=== PATIENT | male | born 1940 | race Caucasian/White ===

== ENCOUNTER → 2017-06-10 | Outpatient (CLI) | payer MEDICARE, BC ==
[~2017-06-10] MED LIST: ATOR10; Adult Low Dose81 MG; CIPR500 PO; ENDOCET 2.5-321 EACH; Endocet 7.5-321 EACH PO; FISH1000; METR500 PO; MULVITMIND; Oxycodone-Apap1 EAC3; Percocet 5-3251 EACH PO; TAMS.4ER PO
== END | disposition home or self-care (01) ==
LOC: PLD 11:18 → LAB SHORT 11:18
DX: D48.5 Neoplasm of uncertain behavior of skin (principal)
CPT/HCPCS: 88305

== ENCOUNTER → 2018-06-10 | Outpatient (CLI) | payer MEDICARE, BC | END | disposition home or self-care (01) | LOC: LAB SHORT 14:40 → PLD 14:40 | DX: C44.41 Basal cell carcinoma of skin of scalp and neck (principal) | CPT/HCPCS: 88305 ==

== ENCOUNTER 2018-12-31 19:02 | Emergency (ER) | payer MEDICARE, BC ==
[~2018-12-31] VITALS: Ht 175.3 cm; Wt 70.3 kg
[2018-12-31 19:42] LABS: BASOPHILS ABSOLUTE AUTO 0.07 K/mm3 (0.00-0.23); BASOPHILS PERCENT AUTO 1 % (0-2); EOSINOPHILS ABSOLUTE AUTO 0.19 K/mm3 (0.00-0.68); EOSINOPHILS PERCENT AUTO 3 % (0-6); Hematocrit 41.6 % (37.0-53.0); Hemoglobin 13.7 g/dL (13.5-17.5); IMMATURE GRAN ABSOLUTE AUTO 0.03 K/mm3 (0.00-0.10); IMMATURE GRAN PERCENT AUTO 1 % (0-1); LYMPHOCYTES ABSOLUTE AUTO 1.53 K/mm3 (0.84-5.20); LYMPHOCYTES PERCENT AUTO 25 % (21-46); MONOCYTES ABSOLUTE AUTO 0.73 K/mm3 (0.16-1.47); MONOCYTES PERCENT AUTO 12 % (4-13); Mean Corpuscular HGB 31.3 pg (26.0-34.0); Mean Corpuscular HGB Conc 32.9 g/dL (31.5-36.5); Mean Corpuscular Volume 95 fL (80-100); Mean Platelet Volume 10.3 fL (9.1-12.4); NEUTROPHILS ABSOLUTE AUTO 3.56 K/mm3 (1.96-9.15); NEUTROPHILS PERCENT AUTO 58 % (41-73); Platelet Count 188 K/mm3 (150-400); RDW Coefficient Variation 13.7 % (11.7-14.2); RDW Standard Deviation 48.2 fL (35.1-46.3); Red Blood Cell Count 4.38 M/mm3 (4.30-5.90); White Blood Cell Count 6.11 K/mm3 (4.00-11.30)
[2018-12-31 19:47] LABS: Source, Urine Clean Catch
[2018-12-31 19:58] LABS: Appearance, Urine Clear (Clear); Bilirubin, Urine Neg (Neg); Blood, Urine Neg (Neg); Color, Urine Yellow (P-Yellow); Glucose Qualitative, Urine Neg (Neg); Ketones, Urine Neg (Neg); Leukocyte Esterase, Urine Neg (Neg); Nitrite, Urine Neg (Neg); Protein, Urine 1+ (Neg); Urobilinogen, Urine NORM (Normal); pH, Urine 6.5 (5.0-8.0)
[2018-12-31 20:02] LABS: Alanine Aminotransfer (ALT/SGP 26 U/L (12-78); Albumin, Blood 3.8 g/dL (3.4-5.0); Albumin/Globulin Ratio 1.2 (0.8-1.8); Alk Phos 57 U/L (50-136); Anion Gap 3 mmol/L (6-16); Aspartate Aminotrans (AST/SGOT 16 U/L (12-37); Bilirubin, Total 0.3 mg/dL (0.1-1.0); Blood Urea Nitrogen 18 mg/dL (8-24); Bun/Creatinine Ratio 19.7 (12.0-20.0); CO2, Blood 28 mmol/L (21-32); Calcium, Blood 8.9 mg/dL (8.5-10.1); Chloride, Blood 109 mmol/L (98-108); Creatinine, Blood 0.91 mg/dL (0.60-1.20); Globulin, Blood 3.2 g/dL (2.2-4.0); Glomerular Filtration Rate >60 (60-); Glucose, Blood 90 mg/dL (70-99); Potassium, Blood 4.1 mmol/L (3.5-5.5); Sodium, Blood 140 mmol/L (136-145)
[2018-12-31] MEDS ORDERED: LIDO700A20 TOP (21:13)
[2018-12-31] MEDS ORDERED: KETO10 PO (21:13)
== END 2018-12-31 22:00 | disposition home or self-care (01) ==
LOC: ER 19:02
PROVIDERS: Physician Assistant
DX: M54.41 Lumbago with sciatica, right side (principal); Z79.899 Other long term (current) drug therapy; Z79.891 Long term (current) use of opiate analgesic
CPT/HCPCS: 36415; 74176; 80053; 85025; 99284-25

== ENCOUNTER → 2019-01-26 | Outpatient (CLI) | payer MEDICARE, BC ==
[~2019-01-26] MED LIST changes: +KETO10 PO; +LIDO700A20 TOP
== END | disposition home or self-care (01) ==
LOC: PLD 07:41 → LAB SHORT 07:41
DX: D48.5 Neoplasm of uncertain behavior of skin (principal)
CPT/HCPCS: 88305

== ENCOUNTER → 2019-02-05 | Outpatient (CLI) | payer MEDICARE, BC | END | disposition home or self-care (01) | LOC: PLD 08:30 → LAB SHORT 08:30 | DX: D48.5 Neoplasm of uncertain behavior of skin (principal) | CPT/HCPCS: 88305 ==

== ENCOUNTER → 2020-11-28 | Outpatient (CLI) | payer MEDICARE, BC | LOC: LAB 15:24 → LAB SHORT 15:24 | DX: D48.5 Neoplasm of uncertain behavior of skin (principal) | CPT/HCPCS: 88305 ==

== ENCOUNTER 2020-12-14 16:07 | Inpatient (IN) | payer MEDICARE, BC ==
[~2020-12-14] VITALS: Ht 172.7 cm; Wt 69.2 kg
[~2020-12-14 16:07] MED LIST changes: -BRIMONIDINE TART5 M2 RIGHTEYE
[2020-12-14 16:50] LABS: Alanine Aminotransfer (ALT/SGP 18 U/L (12-78); Albumin, Blood 3.3 g/dL (3.4-5.0); Albumin/Globulin Ratio 1.1 (0.8-1.8); Alk Phos 51 U/L (50-136); Anion Gap 6 mmol/L (6-16); Aspartate Aminotrans (AST/SGOT 16 U/L (12-37); BASOPHILS ABSOLUTE AUTO 0.09 K/mm3 (0.00-0.23); BASOPHILS PERCENT AUTO 1 % (0-2); Bilirubin, Total 0.4 mg/dL (0.1-1.0); Blood Urea Nitrogen 22 mg/dL (8-24); Bun/Creatinine Ratio 19.5 (12.0-20.0); CO2, Blood 25 mmol/L (21-32); Calcium, Blood 8.9 mg/dL (8.5-10.1); Chloride, Blood 110 mmol/L (98-108); Creatinine, Blood 1.13 mg/dL (0.60-1.20); EOSINOPHILS ABSOLUTE AUTO 0.22 K/mm3 (0.00-0.68); EOSINOPHILS PERCENT AUTO 3 % (0-6); Globulin, Blood 3.1 g/dL (2.2-4.0); Glomerular Filtration Rate >60 (60-); Glucose, Blood 93 mg/dL (70-99); Hematocrit 38.8 % (37.0-53.0); Hemoglobin 13.2 g/dL (13.5-17.5); IMMATURE GRAN ABSOLUTE AUTO 0.04 K/mm3 (0.00-0.10); IMMATURE GRAN PERCENT AUTO 1 % (0-1); LYMPHOCYTES ABSOLUTE AUTO 1.21 K/mm3 (0.84-5.20); LYMPHOCYTES PERCENT AUTO 17 % (21-46); MONOCYTES PERCENT AUTO 10 % (4-13); Mean Corpuscular HGB 31.4 pg (26.0-34.0); Mean Corpuscular Volume 92 fL (80-100); Mean Platelet Volume 10.2 fL (9.1-12.4); NEUTROPHILS ABSOLUTE AUTO 4.93 K/mm3 (1.96-9.15); NEUTROPHILS PERCENT AUTO 69 % (41-73); Platelet Count 194 K/mm3 (150-400); Potassium, Blood 4.1 mmol/L (3.5-5.5); RDW Coefficient Variation 13.6 % (11.7-14.2); RDW Standard Deviation 46.1 fL (35.1-46.3); Red Blood Cell Count 4.21 M/mm3 (4.30-5.90); Sodium, Blood 141 mmol/L (136-145); Total Protein, Blood 6.4 g/dL (6.4-8.2); Troponin I 0.059 ng/mL (0.000-0.040); White Blood Cell Count 7.19 K/mm3 (4.00-11.30)
[2020-12-14] MEDS ORDERED: BRIMONIDINE TART5 M2 RIGHTEYE (17:53)
[2020-12-14 19:53] LABS: SARS-Cov-2 (COVID-19) PCR, MMC NEGATIVE (NEGATIVE)
[2020-12-14 22:22] LABS: International Normalized Ratio 1.06; Prothrombin Time Results 11.1 Sec (9.7-11.5)
--- NOTE | 2020-12-15 04:52 | NUR ---
PATIENT IS A NEW ADMIT FROM ER, RN TO RN REPORT RECEIVED FROM MONSE. PATIENT IS ALERT AND ORIENTED X4. PATIENT ADMITTED FOR COMPLAIN OF CHEST PAIN. PATIENT HAS A PAST MEDICAL HISTORY OF DIVERTICULITIS. PATIENT HAD A CXR THAT IS NEGATIVE AND ON TELE WITH A NSR IN THE 60s. VITAL SIGNS ARE STABLE, WITH NO FEVER. PATIENT IS HARD OF HEARING. PATIENT HAS A TROPONIN LEVEL OF 0.098 AND ALBUMEN LEVEL OF 3.3. PATIENT REPORTED CHEST PAIN SOON A PATIENT GOT HERE. PATIENT WAS MEDICATED WITH NITRO SC, PAIN RESOLVED WITH THE FIRST DOSE. PATIENT DID NOT COMPLAIN OF ANY FURTHER CHEST PAIN. PATIENT WAS STARTED ON HEPARIN DRIP RUNNING AT 13 U/KG/HR. WILL CONTINUE TO MONITOR.
--- NOTE | 2020-12-15 06:30 | NUR ---
ISAURA'S APTT WAS CRITICALLY HIGH, APTT 111. SPOKE TO PHARMACY AND GOT ORDERS TO ADJUST TO RUN AT 12 UNITS/KG/H.
--- NOTE | 2020-12-15 12:50 | NUR ---
Patient c/o pain that radiates to his back. nothing made it better or worse. The telemarketing fundraiser was contact and patient was sinus rhythm 86bpm. The patient was sat up. The provider was contacted about the pain and he ordered tylenol. The patient's pain resolved itself.
--- NOTE | 2020-12-15 18:14 | NUR ---
Patient c/o pain in chest, he denied having SOB, He states its in the middle of his chest and it radiats to his back. Tele contacted and he is Sinus Rhythm 84. The patient's 136/87. The provider was contacted and tylenol was ordered and omeprazole. They were given per emar. The patient stated that he has hx of GERD.
--- NOTE | 2020-12-15 18:19 | NUR ---
Shift Summary, The patient is A/OX4 to person, place, time and event. The patient is cooperative and pleasent with care. He can be forgetfull and forgets to use call lights. The patient is a standby assist to the bathroom. He is on room air, no SOB, He has chest pain off and on, provider contacted an and tylenol was ordered both times. been given per emar or it resolves on its own. The patient has had a echocardiogram (see notes). Patient started stress test but unable to finish due to exertion. The patient will be NPO at midnight due to stress test in the AM. The patient is currently recieving heprin drip per EMAR. Currently, the patient is visiting with his .
--- NOTE | 2020-12-15 19:29 | NUR ---
Shift Summary, The patient is A/OX4 to person, place, time and event. The patient is pleasent and cooperative with care. She is on Airvo 55/90% and sp02 >90% until activity. The patient desats with exertion and requires an NRB 15LPM. The patient denies having SOB this shift. She has been working on breathing exercises per respiratory therapy. She has been working on physical exercises per PT/OT. The patient is a 1 prsn assist to [facility] and she has been up to her chair most of the day. The patient was visited by her this afternoon. The patient's diet has been good and she finishes most meals. Currenly the patient is lying in bed watching tv.
--- NOTE | 2020-12-16 05:09 | NUR ---
PT IS AAOX3. VISITED LAST NIGHT. PLEASANT ON APPROACH. DENIES CHEST PAIN. SINUS ARRON ON TELE. HR 58. HEP DRIP INFUSING AT 17.3ML/HOUR. NO S/S OF BLEEDING NOTED. NPO FOR STRESS TEST IN AM. NO CHANGE IN STATUS NOTED. ASSISTED WITH NEEDS. CALL LIGHT WITHIN REACH.
--- NOTE | 2020-12-16 05:20 | NUR ---
COMMUNICATION: DR. HUANG NOTIFIED BY CHARGE NURSE VANDANA OF TROPONIN LEVEL OF 0.360. NO NEW ORDER GIVEN.
--- NOTE | 2020-12-16 11:40 | NUR ---
Per chart review, pt. not yet appropriate for discharge. With potential to discharge over the next 24-72 hours, I met with pt. yesterday to discuss discharge planning. Pt. has strong family support system. Denied needs at home. Was very indipendent prior to admit. Denied concerns for safety or barriers to discharge. His girlfriend Rubén lives next door and daughter in-law is an FINISH REPAIRER. Pt. denied need for DME. We attempted to schedule a hospital F/U but he was unsure of dates/times available. Cancelled initially scheduled visit. DONTA team will contact pt. post discharge to schedule hospital F/U and also assist with plant specialist appointment if indicated. No further needs identified at this time.
--- NOTE | 2020-12-16 17:37 | NUR ---
SHIFT SUMMARY NO CHEST PAIN OR NAUSEA THIS SHIFT. STRESS TEST AND ECHO THIS AM. ANGIO SCHEDULED FOR TOMORROW BETWEEN [phone]. PT IS TO BE NPO AFTER MIDNIGHT AND HAVE HIS HEPARIN DRIP DC AFTER MIDNIGHT. DIL CALLED AND INFORMED OF PLAN FOR TOMORROW. CONSENT PAPERWORK SIGNED AND IN CHART. EYE DROPS FOR CATARACTS TO BE ADMINISTERED PER INSTRUCTIONS ON THE BOARD. WILL CONTINUE TO MONITOR.
--- NOTE | 2020-12-17 04:33 | NUR ---
PT REPORTS WAKING UP WITH SOME CENTRAL CHEST PAIN RATED 2/10 THAT LASTED FOR ABOUT TWO MINUTES. PT ADMITS THAT HE WAS A BIT STARTLED BY THE INDEPENDENT LIVING SPECIALIST THIS AM AND THE PAIN RESOLVED. PT NOT GIVEN NITRO AT THIS TIME.
--- NOTE | 2020-12-17 04:51 | NUR ---
PT BEGAN EXPERIENCING 8/10 CHEST PAIN WHEN SITTING UP TO WALK TO THE RESTROOM. PT GIVEN ONE DOSE OF NITRO AND REPORTS SOB. GIVEN ANOTHER DOSE. PT IS SINUS AT 86 PER BEHAVIOR THERAPIST. PAIN RESOLVING AFTER NITRO.
--- NOTE | 2020-12-17 07:39 | NUR ---
SUPERVISOR BEET END SUMMARY ADMITTED FOR CHEST PAIN. PT IS FULL CODE. PLAN FOR ANGIO TODAY TO FIND SOURCE OF THE CHEST PAIN. PT WOKE UP AT 0400 WITH ACUTE CHANGE AND MIDSTERNAL CHEST PAIN. PT MEDICATED WITH NITRO AND FENTANYL - SOME IMPROVEMENT BUT PAIN RETURNED WORSE. MEDICATED WITH DILAUDID AND SAME RESULT. RAPID RESPONSE CALLED WHEN THIS RN WAS UNABLE TO MANAGE PAIN FURTHER. PT MEDICATED FOR INCREASED ANXIETY PER EMAR. PT GIVEN GI COCKTAIL FOR "ACID" PAIN IN HIS CHEST. SEE RAPID RESPONSE NOTES.
[2020-12-17 08:04] LABS: Potassium, Blood 4.2 mmol/L (3.5-5.5); Troponin I 0.698 ng/mL (0.000-0.040)
--- NOTE | 2020-12-17 14:12 | NUR ---
PT HEADED TO ELECTRICAL PROSPECTING OPERATOR IN WHEELCHAIR @ 13:50, BELONGINGS GATHERED TO BE SENT TO NEW ROOM. HAD NOT HAD CHEST PAIN FOR ABOUT 2 HRS.
--- NOTE | 2020-12-17 15:50 | NUR ---
DR. GRANADO AT BEDSIDE. DISCUSSED POC. HE DISCUSSED PROCEDURE AND PLAN WITH PATIENT, HIS SIGNIFICANT OTHER, AND FAMILY MEMBERS OVER THE PHONE. PLAN IS FOR TRANSFER TO [place]. DR. GRANADO STATES OK TO LEAVE NITRO PATCH ON AND REMOVE AT 2200. ORDERS RECEIVED TO DC FISH OIL. STATES TO START DEFLATING TR BAND 1 HOUR POST PROCEDURE. PATIENT OK TO EAT TONIGHT. HAS AN ACCEPTING PHYSICIAN IN [place], WAITING FOR BED. IF PATIENT IS ABLE TO TRANSFER PRIOR TO FLUIDS FINISHING, TRANSFER WITH FLUIDS.
--- NOTE | 2020-12-17 19:00 | NUR ---
ENCOURAGED PATIENT TO VOID PRIOR TO TRANSFER. HE STATES HIS LAST VOID WAS PRIOR TO HIS PROCEDURE. STATES HE DOES NOT WANT TO VOID AT THIS TIME AND THAT HE WILL WAIT UNTIL HE GETS TO [facility].
--- NOTE | 2020-12-17 19:25 | NUR ---
TRANSFER: PATIENT LEFT VIA [facility] TO GO TO [facility] AT 1923. IV FLUIDS INFUSING AT 75 MLS/HR TO FINISH 8 HOUR INFUSION, EMS AWARE. LAST VITALS: TEMP 98.3, HR 74, BP 107/68, RR 16, SPO2 96% ON ROOM AIR. REPORT CALLED TO EMILY MOSES AT [facility] AT 1903. TR BAND COMPLETELY DEFLATED PRIOR TO TRANSFER, WHEN PATIENT GETS TO [facility] BAND WILL NEED TO BE TAKEN OFF AND TEGADERM APPLIED, EMILY MOSES AWARE. PATIENT'S GIRLFRIEND AWARE OF TRANSFER AND AMBULATED OUT OF HOSPITAL WITH EMS. NO FURTHER QUESTIONS AT TIME OF TRANSFER.
== END 2020-12-17 19:22 | disposition short-term general hospital (02) | DRG 282 ==
LOC: ER 16:07 → MEDS 16:08 → PCU 12-17 10:10 → MEDS 12-17 10:10 → PCU 12-17 10:10 → MEDS 12-17 15:11 → PCU 12-17 15:11 → ER 12-17 16:08 → PCU 12-17 19:22
PROVIDERS: Emergency Medicine; Internal Medicine; Pharmacist; Student in an Organized Health Care Education/Training Program; ADMIT Internal Medicine
PROC: 4A023N7 Measurement of Cardiac Sampling and Pressure, Left Heart, Percutaneous Approach (ICD-10-PCS; principal; 2020-12-17)
PROC: B2111ZZ Fluoroscopy of Multiple Coronary Arteries using Low Osmolar Contrast (ICD-10-PCS; 2020-12-17)
DX: I21.4 Non-ST elevation (NSTEMI) myocardial infarction (principal); I25.110 Atherosclerotic heart disease of native coronary artery with unstable angina pectoris; I10 Essential (primary) hypertension; Z20.822 Contact with and (suspected) exposure to COVID-19; Z96.642 Presence of left artificial hip joint; E78.5 Hyperlipidemia, unspecified; Z79.899 Other long term (current) drug therapy; Z98.890 Other specified postprocedural states; Z90.49 Acquired absence of other specified parts of digestive tract
CPT/HCPCS: 36415; 71045; 71275; 74175; 78452; 80051; 80053; 84484; 85025; 85379; 85610; 85730; 90686; 93005; 93010; 93017; 93306; 93458; 96375; 96376; 99152; 99153; 99285-25; A9270; A9500; C1769; C1894; C9113; G0008; G0378; J0360; J0706; J1170; J1644; J1885; J2060; J2250; J2270; J2785; J3010; J7030; J7040; J7050; Q9967; U0004

== ENCOUNTER → 2020-12-14 | Outpatient (CLI) | payer MEDICARE, BC ==
[~2020-12-14] MED LIST changes: +BRIMONIDINE TART5 M2 RIGHTEYE; +FISH OIL 1,2001 EAC7 PO; -FISH1000; +Hair, Skin & N1 EACH PO; -MULVITMIND
[2020-12-14 16:08] LABS: BASOPHILS PERCENT AUTO 1 % (0-2); EOSINOPHILS ABSOLUTE AUTO 0.26 K/mm3 (0.00-0.68); EOSINOPHILS PERCENT AUTO 4 % (0-6); Hemoglobin 13.6 g/dL (13.5-17.5); IMMATURE GRAN ABSOLUTE AUTO 0.03 K/mm3 (0.00-0.10); IMMATURE GRAN PERCENT AUTO 0 % (0-1); LYMPHOCYTES ABSOLUTE AUTO 1.27 K/mm3 (0.84-5.20); LYMPHOCYTES PERCENT AUTO 17 % (21-46); MONOCYTES ABSOLUTE AUTO 0.77 K/mm3 (0.16-1.47); MONOCYTES PERCENT AUTO 10 % (4-13); Mean Corpuscular Volume 91 fL (80-100); NEUTROPHILS ABSOLUTE AUTO 5.02 K/mm3 (1.96-9.15); NEUTROPHILS PERCENT AUTO 68 % (41-73); Platelet Count 201 K/mm3 (150-400); RDW Coefficient Variation 13.6 % (11.7-14.2); RDW Standard Deviation 46.1 fL (35.1-46.3); Red Blood Cell Count 4.39 M/mm3 (4.30-5.90); White Blood Cell Count 7.45 K/mm3 (4.00-11.30)
[2020-12-14 16:33] LABS: Albumin, Blood 3.6 g/dL (3.4-5.0); Albumin/Globulin Ratio 1.2 (0.8-1.8); Bilirubin, Total 0.3 mg/dL (0.1-1.0); Bun/Creatinine Ratio 17.6 (12.0-20.0); Calcium, Blood 8.9 mg/dL (8.5-10.1); Creatinine, Blood 1.25 mg/dL (0.60-1.20); Globulin, Blood 2.9 g/dL (2.2-4.0); Potassium, Blood 4.1 mmol/L (3.5-5.5); Total Protein, Blood 6.5 g/dL (6.4-8.2)
[2020-12-14 16:34] LABS: Troponin I 0.049 ng/mL (0.000-0.040)
== END | disposition home or self-care (01) ==
LOC: LAB 16:04 → LAB SHORT 16:04
PROVIDERS: Family Medicine
DX: R07.9 Chest pain, unspecified (principal)
CPT/HCPCS: 80053; 84484; 85025; 85379

== ENCOUNTER → 2022-01-14 | Outpatient (CLI) | payer MEDICARE, BC ==
[~2022-01-14] MED LIST changes: +BRIMONIDINE TART5 M2 RIGHTEYE
[2022-01-14 16:35] LABS: Hematocrit 39.7 % (37.0-53.0); Hemoglobin 13.1 g/dL (13.5-17.5); Mean Corpuscular Volume 94 fL (80-100); Mean Platelet Volume 9.8 fL (9.1-12.4); Platelet Count 258 K/mm3 (150-400); RDW Coefficient Variation 13.8 % (11.7-14.2); RDW Standard Deviation 46.5 fL (35.1-46.3); Red Blood Cell Count 4.22 M/mm3 (4.30-5.90); White Blood Cell Count 9.41 K/mm3 (4.00-11.30)
[2022-01-14 16:42] LABS: Albumin, Blood 3.2 g/dL (3.4-5.0); Albumin/Globulin Ratio 1.1 (0.8-1.8); Bilirubin, Total 0.3 mg/dL (0.1-1.0); Bun/Creatinine Ratio 16.1 (12.0-20.0); Calcium, Blood 8.8 mg/dL (8.5-10.1); Creatinine, Blood 2.18 mg/dL (0.60-1.20); Potassium, Blood 4.3 mmol/L (3.5-5.5); Total Protein, Blood 6.2 g/dL (6.4-8.2)
[2022-01-14 17:02] LABS: BAND PERCENT MAN 2 % (0-8); BASOPHILS PERCENT MAN 0 % (0-2); EOSINOPHILS ABSOLUTE MAN 0.28 K/mm3 (0.00-0.68); EOSINOPHILS PERCENT MAN 3 % (0-6); LYMPHOCYTES ABSOLUTE MAN 2.35 K/mm3 (0.84-5.20); LYMPHOCYTES PERCENT MAN 25 % (21-46); METAMYELOCYTE ABSOLUTE MAN 0.09 K/mm3 (0.00-0.00); METAMYELOCYTE PERCENT MAN 1 % (0-0); MONOCYTES ABSOLUTE MAN 0.75 K/mm3 (0.16-1.47); MONOCYTES PERCENT MAN 8 % (4-13); MYELOCYTE ABSOLUTE MAN 0.09 K/mm3 (0.00-0.00); MYELOCYTE PERCENT MAN 1 % (0-0); NEUTROPHILS ABSOLUTE MAN 5.83 K/mm3 (1.96-9.15); SEG NEUTROPHILS PERCENT MAN 60 % (41-73); TOTAL CELLS COUNTED 100
== END | disposition home or self-care (01) ==
LOC: LAB 16:28 → LAB SHORT 16:28
PROVIDERS: Physician Assistant Surgical
DX: I95.9 Hypotension, unspecified (principal)
CPT/HCPCS: 80053; 85025

== ENCOUNTER → 2022-04-26 | Outpatient (CLI) | payer MEDICARE, BC ==
[2022-04-26 14:52] LABS: Creatinine Urine 43.9 mg/dL (27.00-270.00); Protein, Urine Quantitative 9.2 mg/dL (0.0-11.9)
[2022-04-26 14:54] LABS: Microalbumin, Urine Quant. 23.6 mg/L (0.000-20.000)
== END | disposition home or self-care (01) ==
LOC: LAB SHORT 06:00
PROVIDERS: Internal Medicine Nephrology
DX: N18.30 Chronic kidney disease, stage 3 unspecified (principal); D63.1 Anemia in chronic kidney disease; N25.81 Secondary hyperparathyroidism of renal origin; E55.9 Vitamin D deficiency, unspecified; E78.00 Pure hypercholesterolemia, unspecified; D51.8 Other vitamin B12 deficiency anemias; D52.8 Other folate deficiency anemias; D50.0 Iron deficiency anemia secondary to blood loss (chronic); R76.9 Abnormal immunological finding in serum, unspecified; R94.5 Abnormal results of liver function studies; R94.6 Abnormal results of thyroid function studies
CPT/HCPCS: 81050; 82043; 82570; 84156